=== PATIENT | female | born 1935 | race Hispanic/Latino ===

== ENCOUNTER 2023-10-22 11:14 | Emergency (ER) | payer OTHER, SELFPAY ==
[2023-10-22 11:17] VITALS: BP 154/66
--- NOTE | 2023-10-22 11:37 | ED.GENMED ---
History of Present Illness
General
Chief Complaint: Musculo-Skeletal Complaint
Source: patient
Exam Limitations: none
Time Seen by Provider: 10/22/23 11:21
History of Present Illness
History of Present Illness:
See MDM
Past History
Past History
ED Past Medical History: NIDDM and Other (Emphysema)
ED Past Surgical History: Appendectomy, Cholecystectomy, and Orthopedic (left knee surgery)
Social History
Tobacco: Former smoker
Alcohol: None
Drug: None
Personal:
Living: with family
Phy Exam
Physical Exam
Physical Exam:
See MDM
Course
Orders/Labs/Results
Orders:
Orders
10/22/23 11:33
Electrocardiogram (*1) Urgent
Reason for Study: Syncope
10/22/23 11:34
EKG- Treatment ONCE
10/22/23 11:35
Basic Metabolic Panel Urgent
Complete Blood Count/With Diff Urgent
10/22/23 11:37
0.9% Sodium Chloride 1000 ml [Nss] 1,000 ml IV BOLUS
10/22/23 12:09
Ketorolac [Toradol] 30 mg IV NOW STA
10/22/23 13:39
Morphine Sulfate 4 mg IV NOW STA
Abnormal Lab Results
10/22/23
11:35
WBC 10.9 H 10^3/uL
(4.8-10.8)
MCHC 32.5 L g/dL
(33.0-37.0)
RDW 15.4 H %
(11.5-14.5)
Plt Count 407 H 10^3/uL
(130-400)
Abs Immat Gran (auto) 0.1 H 10^3/uL
(0-0.05)
Absolute Neuts (auto) 7.4 H 10^3/uL
(1.4-6.5)
Immature Gran % 0.9 H %
(0-0.5)
BUN 33 H mg/dl
(7-17)
Glucose 166 H mg/dl
(70-99)
10/22/23 11:35
10/22/23 11:35
Vital Signs
Initial and Last Documented VS:
Initial Vital Signs
Temp Pulse Resp BP Pulse Ox
97.5 F 82 16 154/66 94
10/22/23 11:17 10/22/23 11:17 10/22/23 11:17 10/22/23 11:17 10/22/23 11:17
Last Documented Vital Signs
Temp Pulse Resp BP Pulse Ox
97.5 F 98 22 183/71 98
10/22/23 11:17 10/22/23 13:30 10/22/23 13:30 10/22/23 13:30 10/22/23 13:30
MDM/Problems Addressed
Differential Diagnosis Includes:
HPI and MDM Narrative:
88-year-old female presenting for evaluation of an unresponsive episode. Patient was walking and complaining of leg pain. She has a history of diabetic neuropathy and already on gabapentin. When she sat down, she had a shaking episode and was
staring off into space. The daughter was having trouble getting her to respond. Symptoms self resolved. EMS was already called. Daughter states that she had an episode like this before they got better with IV fluids. Patient has not been eating
and drinking enough at home, per patient
Since all symptoms resolved, low utility in diagnostic testing. Likely vasovagal episode from pain response. Will give IV fluids and obtain basic blood work. Patient describes pain down her leg almost in a sciatica-like pattern. There is no
reproducible tenderness on my exam. She has a known history of diabetic neuropathy and this has been a chronic issue for her
Physical exam
General: Well appearing and non-toxic
HEENT: protecting airway
Neck: appears supple
CV: No evidence of cyanosis. Regular rate and rhythm
Resp: No accessory muscle use
Abd: Non-distended
Extremities: No deformities
Neuro: alert. No focal deficits. Moving all 4 extremities. Muscle strength and sensation grossly intact in all extremities. No facial paralysis or aphasia noted
Psych: Normal affect
Skin: Intact
Problems Addressed including Acute and Chronic Conditions affecting care:
1. Unresponsive episode
Acuity: acute
Prognosis: stable
Details: Likely vasovagal. Will obtain basic blood work and EKG. All symptoms have resolved
Updates
Lab work without significant abnormality. Patient still complains of back pain rating down her left leg. I am hesitant to place on steroids to treat the sciatica given her diabetes. We discussed increasing her gabapentin. Will give one-time dose
of pain medicine here
Differential Diagnosis (but not limited to): Metabolic encephalopathy, UTI, vasovagal, cardiac arrhythmia
Testing considered: CT head
Drug therapy (if applicable): OTC meds, please see d/c instruction regarding Rx drugs
Amount and/or Complexity of Data Reviewed
Clinical info obtained from: Patient and daughter. Daughter states symptoms like this have resolved with IV fluids in the past
External data reviewed: N/A
Labs I independently reviewed (but not limited to): Hyperglycemia
Radiology: N/A
Pulse Ox: not hypoxic
EKG independently reviewed: Normal sinus rhythm, normal axis, no STEMI
Physics Faculty Member: Sinus rhythm
Critical Care: N/A
Risk of Complication:
Social Determinants of health: Good social support
Discussed with other providers: N/A
Escalation of Care includes Admit/Obs: After being observed in the Emergency Department, pt stable for discharge.
Occasional wrong word or 'sound a like' substitutions may have occurred due to the inherent limitations of voice recognition software. Read the chart carefully and recognize, using context, where substitutions have occurred.
*Critical Care Note
Total Time (30-74mins, 75-104mins- exclusive of procedures): Not Applicable
ED Attending Note
-
Portions of this chart may have been created with voice recognition software.� Occasional wrong word or��sound alike� substitutions may have occurred due to the inherent limitations of voice recognition software.
Discharge Plan
Departure
Patient Disposition: Home (Routine Discharge)
Date of Disposition: 10/22/23
Time of Disposition: 14:05
Patient with high blood pressure during this ER visit?: Yes
Discharge Problem:
Sciatic pain, Vasovagal syncope
Instructions: Syncope (fainting), Sciatica ED
Referrals:
Srinivas Juarez MD [Family Provider] -
Activity Restrictions/Additional Instructions:
Please return for any worsening symptoms.
You may return at any time if you have further concerns.
Please follow up with your doctor at the first available appointment, preferably this week. You can increase the gabapentin to twice a day for the next week.
Please have this further evaluated by your doctor.
Thank you for choosing [facility].
Interventions
Interventions:
*Risk Screen - Suicide Last Done: 10/22/23 11:20
*General Assessment Last Done: 10/22/23 11:20
*Neglect/Abuse Screening Last Done: 10/22/23 11:20
ED- Fall Risk Assessment Last Done: 10/22/23 13:34
*ED COVID-19 Vaccine History Last Done: 10/22/23 13:34
ED-Musculoskeletal Assessment Last Done: 10/22/23 13:34
Discharge Date and Time
Print Language: HUNGARIAN
[2023-10-22 11:48] LABS: % Basophils 0.6 % (0-2); % Eosinophils 3.9 % (0-6); % Immature Granulocytes 0.9 % (0-0.5); % Lymphocytes 21.5 % (20.5-51.1); % Monocytes 5.2 % (1.7-9.3); % Neutrophils 67.9 % (42.2-75.2); Absolute Basophils 0.1 10^3/uL (0-0.2); Absolute Eosinophils 0.4 10^3/uL (0-0.7); Absolute Immature Granulocytes 0.1 10^3/uL (0-0.05); Absolute Lymphocytes 2.3 10^3/uL (1.2-3.4); Absolute Monocytes 0.6 10^3/uL (0.1-0.6); Absolute Neutrophils 7.4 10^3/uL (1.4-6.5); Hematocrit 46.2 % (37.0-47.0); Mean Corp Hgb Conc. 32.5 g/dL (33.0-37.0); Mean Corpuscular Hgb 30.7 pg (27.0-31.0); Mean Corpuscular Volume 94.5 fL (81.0-99.0); Mean Platelet Volume 9.7 fL (7.4-10.4); Nucleated Red Blood Cells % 0 %; Platelet Count 407 10^3/uL (130-400); Red Blood Cell Count 4.89 10^6/uL (4.20-5.40); Red Cell Dist. Width 15.4 % (11.5-14.5); White Blood Cell Count 10.9 10^3/uL (4.8-10.8)
[2023-10-22 12:07] LABS: Blood Urea Nitrogen 33 mg/dl (7-17); Calcium 9.6 mg/dl (8.4-10.2); Carbon Dioxide 29 mmol/L (22-30); Chloride 103 mmol/L (98-107); Sodium 140 mmol/L (135-145); eGFR > 60.00
[2023-10-22 12:08] LABS: Glucose 166 mg/dl (70-99)
[2023-10-22] MEDS: TORADOL 30 MG IV (12:11)
[2023-10-22] MEDS: NSS 1000 IV (12:12)
[2023-10-22 12:16] VITALS: BP 171/78
[2023-10-22 12:30] VITALS: BP 171/85
[2023-10-22 13:00] VITALS: BP 173/84
[2023-10-22 13:30] VITALS: BP 183/71
[2023-10-22] MEDS: MORPHINE SULFATE 4 MG IV (13:42)
[2023-10-22 14:00] VITALS: BP 152/77
== END 2023-10-22 14:20 | disposition home or self-care (01) ==
LOC: EMR 11:14
PROVIDERS: EMERGENCY PHYSICIAN Student in an Organized Health Care Education/Training Program; FAMILY PHYSICIAN Internal Medicine
DX: M54.30 Sciatica, unspecified side (principal); R55 Syncope and collapse; E11.40 Type 2 diabetes mellitus with diabetic neuropathy, unspecified
CPT/HCPCS: 99283; 96374; 96375; 96361; 80048; 85025; 93005

== ENCOUNTER 2024-06-03 09:29 | Emergency (ER) | payer OTHER, SELFPAY ==
[2024-06-03 09:36] VITALS: BP 130/60
[2024-06-03 11:01] VITALS: BMI 33.6
[2024-06-03 11:07] VITALS: BP 119/52
[2024-06-03 11:47] LABS: % Basophils 0.7 % (0-2); % Eosinophils 2.1 % (0-6); % Immature Granulocytes 0.6 % (0-0.5); % Lymphocytes 11.7 % (20.5-51.1); % Monocytes 5.5 % (1.7-9.3); % Neutrophils 79.4 % (42.2-75.2); Absolute Basophils 0.1 10^3/uL (0-0.2); Absolute Eosinophils 0.3 10^3/uL (0-0.7); Absolute Immature Granulocytes 0.1 10^3/uL (0-0.05); Absolute Lymphocytes 1.5 10^3/uL (1.2-3.4); Absolute Monocytes 0.7 10^3/uL (0.1-0.6); Hematocrit 48.7 % (37.0-47.0); Hemoglobin 15.8 g/dL (12.0-16.0); Mean Corp Hgb Conc. 32.4 g/dL (33.0-37.0); Mean Corpuscular Hgb 30.4 pg (27.0-31.0); Mean Corpuscular Volume 93.8 fL (81.0-99.0); Mean Platelet Volume 9.5 fL (7.4-10.4); Nucleated Red Blood Cells % 0 %; Platelet Count 399 10^3/uL (130-400); Red Blood Cell Count 5.19 10^6/uL (4.20-5.40); Red Cell Dist. Width 15.5 % (11.5-14.5); White Blood Cell Count 12.6 10^3/uL (4.8-10.8)
[2024-06-03 12:00] VITALS: BP 121/57
[2024-06-03 12:07] LABS: Blood Urea Nitrogen 34 mg/dl (7-17); Calcium 9.9 mg/dl (8.4-10.2); Carbon Dioxide 33 mmol/L (22-30); Chloride 98 mmol/L (98-107); Estimated Creatinine Clearance 45 ml/min; Glucose 224 mg/dl (70-99); Sodium 137 mmol/L (135-145); eGFR > 60.00
[2024-06-03 12:44] LABS: ALT (SGPT) 32 U/L (0-35); AST (SGOT) 29 U/L (14-36); Albumin 4.1 g/dl (3.5-5.0); Alkaline Phosphatase 79 U/L (38-126); Direct Bilirubin 0.2 mg/dl (0.0-0.4); Potassium 5.5 mmol/L (3.5-5.1); Total Bilirubin 0.9 mg/dl (0.2-1.3); Total Protein 7.2 g/dl (6.3-8.2)
[2024-06-03] MEDS: NSS 500 IV (13:20)
[2024-06-03 13:40] LABS: Urine Albumin 3+ (Neg - Trace); Urine Bilirubin Negative (Negative); Urine Character Cloudy (Clear); Urine Color Yellow; Urine Glucose Negative (Negative); Urine Ketone Negative (Negative); Urine Leukocyte 3+ (Negative); Urine Nitrite Negative (Negative); Urine Occult Blood 4+ (Negative); Urine Urobilinogen Negative (Neg - 1+)
[2024-06-03 13:50] LABS: Urine Bacteria Few (Negative); Urine Red Blood Cell 0-2 /HPF (0-2); Urine Squamous Cell 0-2 /LPF (Few); Urine White Cell 30-40 /HPF (0-5)
--- NOTE | 2024-06-03 14:31 | ED.GENMED ---
History of Present Illness
General
Chief Complaint: Fainting/Passed Out
Source: patient
Exam Limitations: none
Time Seen by Provider: 06/03/24 11:03
Nursing documentation reviewed up to this point in time: agreed with
History of Present Illness
History of Present Illness:
89-year-old female past medical history of diabetes and dementia presenting to the emergency department if she passed out while she was getting blood drawn prior to arrival. She was brought in by EMS. Otherwise asymptomatic at this point. Was
given food on the way in. Was fasting for the labs
Past History
Past History
ED Past Medical History: NIDDM and Other (Emphysema)
ED Past Surgical History: Appendectomy, Cholecystectomy, and Orthopedic (left knee surgery)
Social History
Tobacco: Former smoker
Alcohol: None
Drug: None
Personal:
Living: with family
Review of Systems
Review of Systems
Allergies reviewed?: Yes
All Other Systems: ROS reviewed and negative except as documented in HPI and ROS
Phy Exam
Physical Exam
Physical Exam:
GENERAL: Alert , in no apparent distress
EYE: pupils equal and reactive
NECK: Supple, no significant adenopathy.
ENT: o/p clr, mmm.
CARDIAC: Regular rate and rhythm .
LUNGS: Clear breath sounds bilaterally, no acute respiratory distress, no wheezes/rales/rhonchi
ABDOMEN: Soft, without focal tenderness, no r/g, no cvat
NEUROLOGICAL: Alert no focal neuro deficits
SKIN: Warm and dry, skin intact.
MUSCULOSKELETAL: No edema, well perfused.
PSYCH: Normal and appropriate interaction.
Course
Orders/Labs/Results
Orders:
Orders
06/03/24 09:38
Electrocardiogram (*1) Urgent
Reason for Study: Syncope
EKG- Treatment ONCE
06/03/24 11:40
Basic Metabolic Panel Urgent
CBC/With Diff [Complete Blood Count/With Diff] Urgent
Urinalysis Reflex To Culture Urgent
Date Specimen was Collected: 06/03/24
Time Specimen was Collected: 11:32
Urine Microscopic Reflex Cult Urgent
Urine Culture Urgent
JUAN Source: U
Specimen Description:
Date Specimen was Collected: 06/03/24
Time Specimen was Collected: 11:32
06/03/24 12:15
Lmvaq-[id number]-[id number] Urgent
Potassium Urgent
06/03/24 12:54
0.9% Sodium Chloride 500 ml [Nss] 500 ml IV BOLUS
06/03/24 14:30
Cefdinir [Omnicef] 300 mg PO NOW STA
Abnormal Lab Results
06/03/24 06/03/24
11:40 12:15
WBC 12.6 H 10^3/uL
(4.8-10.8)
Hct 48.7 H %
(37.0-47.0)
MCHC 32.4 L g/dL
(33.0-37.0)
RDW 15.5 H %
(11.5-14.5)
Abs Immat Gran (auto) 0.1 H 10^3/uL
(0-0.05)
Absolute Neuts (auto) 10.0 H 10^3/uL
(1.4-6.5)
Absolute Monos (auto) 0.7 H 10^3/uL
(0.1-0.6)
Immature Gran % 0.6 H %
(0-0.5)
Neutrophils % 79.4 H %
(42.2-75.2)
Lymphocytes % 11.7 L %
(20.5-51.1)
Potassium 5.5 H mmol/L
(3.5-5.1)
Carbon Dioxide 33 H mmol/L
(22-30)
BUN 34 H mg/dl
(7-17)
Glucose 224 H mg/dl
(70-99)
Ur Occult Blood Reflex 4+ A
(Negative)
Leukocyte Esterase Rfl 3+ A
(Negative)
Urine WBC (Reflex) 30-40 A /HPF
(0-5)
Urine Bacteria (Reflex) Few A
(Negative)
Urine Albumin (Reflex) 3+ A
(Neg - Trace)
06/03/24 11:40
06/03/24 12:15
Vital Signs
Initial and Last Documented VS:
Initial Vital Signs
Temp Pulse Resp BP Pulse Ox
97.5 F 87 16 130/60 98
06/03/24 09:36 06/03/24 09:36 06/03/24 09:36 06/03/24 09:36 06/03/24 09:36
Last Documented Vital Signs
Temp Pulse Resp BP Pulse Ox
97.5 F 92 18 121/57 94
06/03/24 09:36 06/03/24 12:15 06/03/24 12:15 06/03/24 12:00 06/03/24 12:15
MDM/Problems Addressed
MDM/Problems Addressed:
89-year-old female presenting to the emergency department after syncopal episode while getting her blood drawn. Otherwise feels well no trauma. Vital signs normal on arrival and continuing normal throughout ER stay. Labs showing a very slight
white count very slight elevated potassium level. This was discussed with patient will have a potassium sparing diet. She was given fluids here but otherwise no emergent labs. Urinalysis potentially consistent with infection started on
antibiotics otherwise will follow-up closely as an outpatient. Return precautions given.
*Critical Care Note
Total Time (30-74mins, 75-104mins- exclusive of procedures): Not Applicable
ED Attending Note
-
Portions of this chart may have been created with voice recognition software.� Occasional wrong word or��sound alike� substitutions may have occurred due to the inherent limitations of voice recognition software.
Discharge Plan
Departure
Patient Disposition: Home (Routine Discharge)
Date of Disposition: 06/03/24
Time of Disposition: 14:31
Patient with high blood pressure during this ER visit?: No
Condition: Good
Covid-19: Not Applicable
Discharge Problem:
Acute hyperkalemia, Acute UTI, Syncope
Instructions: Syncope (Fainting) (DC), Low-potassium diet
Prescriptions:
New
cefdinir 300 mg capsule
300 mg PO BID 7 Days Qty: 14 0RF
Referrals:
Srinivas Juarez MD [Family Provider] -
Activity Restrictions/Additional Instructions:
You came to the emergency department today after syncopal episode while getting your blood work. Here you had a reassuring assessment. You did have slightly elevated potassium level. Please have a low potassium diet until follow-up in the next
week or 2 for repeated labs. Additionally you may have an ongoing urinary tract infection. Please take cefdinir twice daily for the next week and have a reassessment by her primary care doctor in this regard as well. Return for any worsening, new
or concerning symptoms.
Interventions
Interventions:
*Risk Screen - Suicide Last Done: 06/03/24 09:36
*General Assessment Last Done: 06/03/24 11:01
*Neglect/Abuse Screening Last Done: 06/03/24 09:36
ED- Cardiac Assessment Last Done: 06/03/24 11:01
ED- Neurological Assessment Last Done: 06/03/24 11:01
Discharge Date and Time
Print Language: MACEDONIAN
[2024-06-03] MEDS: OMNICEF 300 MG PO (14:43)
== END 2024-06-03 15:03 | disposition home or self-care (01) ==
LOC: EMR 09:29
PROVIDERS: Physician Assistant; EMERGENCY PHYSICIAN Student in an Organized Health Care Education/Training Program; FAMILY PHYSICIAN Internal Medicine
DX: E87.5 Hyperkalemia (principal); N39.0 Urinary tract infection, site not specified; R55 Syncope and collapse; E11.9 Type 2 diabetes mellitus without complications; F03.90 Unspecified dementia, unspecified severity, without behavioral disturbance, psychotic disturbance, mood disturbance, and anxiety; Z87.891 Personal history of nicotine dependence
CPT/HCPCS: 99284; 96360; 80048; 80076; 81003; 81015; 84132; 85025; 87077; 87086; 87186; 93005